=== PATIENT | female | born 1955 | race African-American/Black ===

== ENCOUNTER 2021-07-05 05:30 | Inpatient (IN) ==
[2021-06-28 11:28] LABS: Basophils # 0.1 10*3/uL (0.0-0.2); Basophils % 1.4 % (0.0-0.8); Eosinophils # 0.5 10*3/uL (0.0-0.87); Eosinophils % 5.8 % (0.00-10.9); Hematocrit 42.5 VOL% (35.7-47.0); Hemoglobin 13.8 GM/DL (12.0-16.0); Immature Granulocytes % 0.5 %; Immature Granulocytes Absolute 0.04 #; Lymphocytes # 3.3 10*3/uL (1.4-4.0); Lymphocytes % 41.5 % (21.3-54.2); Mean Corpuscular HGB Conc 32.5 GM/DL (32-36); Mean Corpuscular Volume 93.2 FL (87-102); Mean Platelet Volume 10.4 FL (9.6-12.0); Monocytes % 6.8 % (1.7-12.7); Platelet Count 281 T/CUMM (130-400); Red Blood Count 4.56 MC/CUMM (3.8-5.5); Red Cell Distribution Width 12.4 % (9.3-17.3)
[2021-06-28 11:50] LABS: PT Patient Result 10.8 SECS (10.5-12.0); Partial Thromboplastin Time 24.5 SECS (23.9-33.8)
[2021-06-28 11:51] LABS: Bacteria,Urine Few /HPF (Few); Bilirubin,Urine Negative (Negative); Blood, Urine Negative (Negative); Glucose,Urine (UA) >=500 mg/dL (Negative); Ketones,Urine Negative (Negative); Mucus,Urine Few /LPF (Occasional); Nitrite,Urine Negative (Negative); Protein,Urine 30 MG/DL; RBC,Urine 7 /HPF (0-4); Squamous Epithelial Cell,Urine Few /HPF (0-10); Urine Appearance CLOUDY (Clear); Urine Color Yellow (Yellow); Urine Specific Gravity 1.013 (1.001-1.035); Urine Urobilinogen < 2.0 EU/DL (0.2-1.0)
[2021-06-28 11:59] LABS: Albumin 3.7 G/DL (3.4-5.0); Bilirubin,Total 0.4 MG/DL (0.20-1.00); Calcium 9.6 MG/DL (8.5-10.1); Osmolality,Calculated 288.3 MOS/KG (273-304); Potassium 4.4 MMOL/L (3.5-5.1); Total Protein 7.2 G/DL (6.4-8.2)
[2021-07-05] MEDS ORDERED: VANCOMYCIN INJ 1,000 MG in SODIUM CHLORIDE 0.9% 250 ML IV ONE (06:00)
[2021-07-05] MEDS ORDERED: MIDAZOLAM 2 MG/2 ML VIAL ONE (06:21)
[2021-07-05] MEDS ORDERED: propofoL 200 MG/20 ML VIAL IV ONE ×2 (06:21→10:08)
[2021-07-05] MEDS ORDERED: LIDOCAINE 2% 5 ML VIAL ONE (06:21)
[2021-07-05] MEDS ORDERED: fentaNYL 100 MCG/2 ML VIAL ONE (06:22)
[2021-07-05] MEDS ORDERED: TRANEXAMIC ACID 1,000 MG/10 ML VIAL ONE (06:25)
[2021-07-05] MEDS ORDERED: ROPIVACAINE 0.5% 30 ML VIAL ONE (06:29)
[2021-07-05] MEDS ORDERED: DEXAMETHASONE 4 MG/1 ML VIAL ONE (06:29)
[2021-07-05] MEDS ORDERED: LIDOCAINE 1% 5 ML VIAL ONE (06:29)
[2021-07-05] MEDS ORDERED: ACETAMINOPHEN 500 MG TABLET ONE (06:41)
[2021-07-05] MEDS ORDERED: SCOPOLAMINE 1.5 MG PATCH TRANSDERM ONE ×2 (06:41→06:43)
[2021-07-05] MEDS ORDERED: GABAPENTIN 400 MG CAPSULE ONE (06:41)
[2021-07-05] MEDS ORDERED: FAMOTIDINE 20 MG TABLET ONE (06:41)
[2021-07-05] MEDS ORDERED: ACETAMINOPHEN 500 MG TABLET PO ONE (06:43)
[2021-07-05] MEDS ORDERED: GABAPENTIN 400 MG CAPSULE PO ONE (06:43)
[2021-07-05] MEDS ORDERED: FAMOTIDINE 20 MG TABLET PO ONE (06:43)
[2021-07-05] MEDS: LACTATED RINGERS 1,000 ML IV SCH ×2 (06:54→11:40)
[2021-07-05] MEDS ORDERED: ONDANSETRON 4 MG/2 ML VIAL ONE (07:24)
[2021-07-05] MEDS ORDERED: KETAMINE 500 MG/10 ML VIAL ONE (07:33)
[2021-07-05] MEDS ORDERED: diphenhydrAMINE CAP 25 MG CAPSULE PO PRN (08:31)
[2021-07-05] MEDS ORDERED: BISACODYL 10 MG SUPP RECTAL PRN (08:31)
[2021-07-05] MEDS ORDERED: TEMAZEPAM 7.5 MG CAPSULE PO PRN (08:31)
[2021-07-05] MEDS ORDERED: LACTULOSE 20 GM/30 ML UDCUP PO PRN (08:31)
[2021-07-05] MEDS ORDERED: MORPHINE 2 MG/1 ML SYRINGE IV PRN ×2 (08:31→09:08)
[2021-07-05] MEDS ORDERED: hydroCHLOROthiazide 25 MG TABLET PO PRN (08:34)
[2021-07-05] MEDS ORDERED: DEXTROSE 50% 25 GM/50 ML VIAL IV PRN (08:34)
[2021-07-05] MEDS ORDERED: GLUCAGON 1 MG VIAL IM PRN (08:34)
[2021-07-05] MEDS ORDERED: SODIUM CHLORIDE 0.9% 100 ML IV ONE (10:08)
[2021-07-05] MEDS: ONDANSETRON 4 MG/2 ML VIAL IV PRN (12:21)
[2021-07-05] MEDS: INSULIN REGULAR 100 UNIT/ML SUBCUT SCH ×3 (13:20→20:11)
[2021-07-05] MEDS: INSULIN NPH/REGULAR 70/30 100 UNIT/ML SUBCUT SCH ×2 (14:44→16:43)
[2021-07-05] MEDS: ceFAZolin 2,000 MG/50 ML DUPLEX IV SCH ×2 (16:42→23:01)
[2021-07-05] MEDS: metFORMIN 500 MG TABLET PO SCH (16:42)
[2021-07-05] MEDS: DOCUSATE SODIUM 100 MG CAPSULE PO SCH (20:10)
[2021-07-05] MEDS: DILTIAZEM CD 120 MG CAPSULE PO SCH (20:10)
[2021-07-05] MEDS: CHOLECALCIFEROL 1,000 UNIT TABLET PO SCH (20:10)
[2021-07-05] MEDS: LATANOPROST 0.005% OPH SOLN 2.5 ML BOTTLE BOTH EYES SCH (20:10)
[2021-07-05] MEDS: FONDAPARINUX 2.5 MG/0.5 ML SYRINGE SUBCUT SCH (20:11)
[2021-07-06 05:10] LABS: Basophils # 0.1 10*3/uL (0.0-0.2); Basophils % 0.5 % (0.0-0.8); Eosinophils % 0.2 % (0.00-10.9); Hematocrit 34.1 VOL% (35.7-47.0); Hemoglobin 11.2 GM/DL (12.0-16.0); Immature Granulocytes % 0.7 %; Immature Granulocytes Absolute 0.09 #; Lymphocytes # 2.8 10*3/uL (1.4-4.0); Mean Corpuscular HGB Conc 32.8 GM/DL (32-36); Mean Corpuscular Volume 92.4 FL (87-102); Mean Platelet Volume 10.6 FL (9.6-12.0); Monocytes % 10.1 % (1.7-12.7); Neutrophils % 65.5 % (38.7-73.9); Platelet Count 219 T/CUMM (130-400); Red Blood Count 3.69 MC/CUMM (3.8-5.5); Red Cell Distribution Width 12.4 % (9.3-17.3)
[2021-07-06 05:23] LABS: Calcium 8.7 MG/DL (8.5-10.1); Osmolality,Calculated 281.3 MOS/KG (273-304); Potassium 3.3 MMOL/L (3.5-5.1)
[2021-07-06] MEDS: INSULIN REGULAR 100 UNIT/ML SUBCUT SCH ×4 (07:33→21:40)
[2021-07-06] MEDS: CHOLECALCIFEROL 1,000 UNIT TABLET PO SCH ×2 (08:35→21:40)
[2021-07-06] MEDS: metFORMIN 500 MG TABLET PO SCH ×2 (08:36→17:09)
[2021-07-06] MEDS: lisinopriL 20 MG TABLET PO SCH (08:36)
[2021-07-06] MEDS: DOCUSATE SODIUM 100 MG CAPSULE PO SCH ×2 (08:36→21:40)
[2021-07-06] MEDS: POTASSIUM CHLORIDE 10 MEQ TABLET PO SCH (08:36)
[2021-07-06] MEDS: allopurinoL 300 MG TABLET PO SCH (08:36)
[2021-07-06] MEDS: PANTOPRAZOLE 40 MG TABLET PO SCH (08:37)
[2021-07-06] MEDS: DILTIAZEM CD 120 MG CAPSULE PO SCH ×2 (08:37→21:40)
[2021-07-06] MEDS: INSULIN NPH/REGULAR 70/30 100 UNIT/ML SUBCUT SCH ×2 (08:38→17:09)
[2021-07-06] MEDS: ONDANSETRON 4 MG/2 ML VIAL IV PRN (15:32)
[2021-07-06] MEDS: FONDAPARINUX 2.5 MG/0.5 ML SYRINGE SUBCUT SCH (20:05)
[2021-07-06] MEDS: LATANOPROST 0.005% OPH SOLN 2.5 ML BOTTLE BOTH EYES SCH (21:40)
[2021-07-07] MEDS: MAGNESIUM HYDROXIDE SUSP 30 ML UDCUP PO PRN ×2 (06:06→17:55)
[2021-07-07] MEDS: ONDANSETRON 4 MG/2 ML VIAL IV PRN (06:08)
[2021-07-07] MEDS: INSULIN NPH/REGULAR 70/30 100 UNIT/ML SUBCUT SCH ×2 (08:43→16:43)
[2021-07-07] MEDS: INSULIN REGULAR 100 UNIT/ML SUBCUT SCH ×4 (08:44→20:54)
[2021-07-07] MEDS: lisinopriL 20 MG TABLET PO SCH (08:44)
[2021-07-07] MEDS: CHOLECALCIFEROL 1,000 UNIT TABLET PO SCH ×2 (08:44→20:53)
[2021-07-07] MEDS: metFORMIN 500 MG TABLET PO SCH ×2 (08:44→16:43)
[2021-07-07] MEDS: DOCUSATE SODIUM 100 MG CAPSULE PO SCH ×2 (08:44→20:53)
[2021-07-07] MEDS: DILTIAZEM CD 120 MG CAPSULE PO SCH ×2 (08:45→20:53)
[2021-07-07] MEDS: PANTOPRAZOLE 40 MG TABLET PO SCH (08:45)
[2021-07-07] MEDS: POTASSIUM CHLORIDE 10 MEQ TABLET PO SCH (08:45)
[2021-07-07] MEDS: allopurinoL 300 MG TABLET PO SCH (08:45)
[2021-07-07] MEDS: FONDAPARINUX 2.5 MG/0.5 ML SYRINGE SUBCUT SCH (20:01)
[2021-07-07] MEDS: LATANOPROST 0.005% OPH SOLN 2.5 ML BOTTLE BOTH EYES SCH (22:14)
[2021-07-08] MEDS: lisinopriL 20 MG TABLET PO SCH (08:29)
[2021-07-08] MEDS: DILTIAZEM CD 120 MG CAPSULE PO SCH (08:29)
[2021-07-08] MEDS: PANTOPRAZOLE 40 MG TABLET PO SCH (08:29)
[2021-07-08] MEDS: POTASSIUM CHLORIDE 10 MEQ TABLET PO SCH (08:30)
[2021-07-08] MEDS: CHOLECALCIFEROL 1,000 UNIT TABLET PO SCH (08:30)
[2021-07-08] MEDS: INSULIN NPH/REGULAR 70/30 100 UNIT/ML SUBCUT SCH (08:30)
[2021-07-08] MEDS: allopurinoL 300 MG TABLET PO SCH (08:30)
[2021-07-08] MEDS: DOCUSATE SODIUM 100 MG CAPSULE PO SCH (08:30)
[2021-07-08] MEDS: metFORMIN 500 MG TABLET PO SCH (08:30)
[2021-07-08] MEDS: INSULIN REGULAR 100 UNIT/ML SUBCUT SCH ×2 (08:31→11:45)
[2021-07-08 15:51] VITALS: BP 106/57
== END 2021-07-08 15:50 | disposition swing bed (61) | DRG 470 ==
LOC: N.OR 05:30 → N.SDSINP 05:31 → N.3E 13:43
PROVIDERS: ADMIT Orthopaedic Surgery; ATTEND Orthopaedic Surgery